=== PATIENT | female | born 1995 | race Caucasian/White ===

== ENCOUNTER 2016-09-15 19:34 | Inpatient (IN) | payer SELFPAY ==
--- NOTE | 2016-09-15 19:39 | EDPHY ---
H & P Time Seen by Provider: 09/15/16 19:35 HPI/ROS: CHIEF COMPLAINT: M1, HISTORY OF PRESENT ILLNESS: 21-year-old female, homeless, daily cigarette smoker, history of bipolar disorder noncompliant with medications, arrives via police on an M1 hold complaining of suicidal ideation with plan to run her camp stove in her tent and " of carbon monoxide poisoning". She denies attempt. Denies physical injury or pain. Denies hallucination. Has been off of bipolar medications for several months she recently moved to [place] from [place]. REVIEW OF SYSTEMS: A ten point review of systems was performed and is negative with the exception of the items mentioned in the HPI PAST MEDICAL & SURGICAL HISTORY: bipolar disorder SOCIAL HISTORY: daily smoker PHYSICAL EXAM (Prior to examination, patient consented to physical exam, hands were washed and my usual and customary physical exam procedures followed) 1) GENERAL: Well-developed, well-nourished, alert and oriented. Appears to be in no acute distress. 2) HEAD: Normocephalic, atraumatic 3) HEENT: Pupils equal, round, reactive to light bilaterally. Sclera anicteric. 4) NECK: Full range of motion, no meningeal signs. 5) LUNGS: Clear auscultation bilaterally, no wheezes, no rhonchi, no retractions. 6) HEART: Regular rate and rhythm, no murmur, no heave, no gallop. 7) ABDOMEN: No guarding, no rebound, no focal tenderness, 8) MUSCULOSKELETAL: Moving all extremities, no focal areas of tenderness, no obvious trauma. No peripheral edema or discoloration. 9) BACK: no obvious trauma, no visual or palpable abnormality. 10) SKIN: No rash, no petechiae. 11) Psychiatric: Patient is oriented X 3, there is no agitation. DIFFERENTIAL DIAGNOSIS: in no particular include but limited to depression, suicidal ideation, homicidal ideation (Kaycee,Lai Traci) Constitutional: Initial Vital Signs Temperature (C) 36.9 C 09/15/16 19:42 Heart Rate 114 H 09/15/16 19:42 Respiratory Rate 16 09/15/16 19:42 Blood Pressure 138/103 H 09/15/16 19:42 O2 Sat (%) 97 08/02/17 19:42 O2 Delivery Mode Room Air Allergies/Adverse Reactions: No Known Allergies Allergy (Unverified 09/15/16 19:41) Home Medications: Medication Instructions Recorded No Home Meds 09/15/16 Medical Decision Making ED Course/Re-evaluation: 7:53 p.m.: Patient complaining of suicidal ideation with plan to run her camp stove in her tent. She denies attempt. Will obtain a carboxyhemoglobin and other diagnostic studies. 8:15 p.m.: Patient is noted to have an elevated carboxyhemoglobin of 4.9 however she is a daily cigarette smoker. Will not initiate high-flow oxygen therapy at this point and she denies attempt at suicide. 10:59 p.m.: Patient admitted to Dr.Raybun Rory Andersen (Lai Benoit) Other Provider: The patient was evaluated and managed by the Physician Pole Framer/ Nurse Practitioner. I discussed the patient's presentation and course with the midlevel provider with them and agree with the evaluation. My co-signature indicates that I have reviewed this chart and I agree with the findings and plan of care as documented. I am the secondary supervising physician. (Nancy Brush) - Data Points Laboratory Results: Laboratory Results 09/15/16 19:49 09/15/16 19:49 09/15/16 09/15/16 09/15/16 19:53 19:49 19:49 WBC RBC Hgb Hct MCV MCH MCHC RDW Plt Count MPV Neut % (Auto) Lymph % (Auto) Bulloch % (Auto) Eos % (Auto) Baso % (Auto) Nucleat RBC Rel Count Absolute Neuts (auto) Absolute Lymphs (auto) Absolute Monos (auto) Absolute Eos (auto) Absolute Basos (auto) Absolute Nucleated RBC Immature Gran % Immature Gran # Carboxyhemoglobin 4.9 % H % (0-1.5) Sodium Potassium Chloride Carbon Dioxide Anion Gap BUN Creatinine Estimated GFR Glucose Calcium Beta HCG, Qual NEGATIVE Salicylates Urine Opiates Screen NEGATIVE (NEGATIVE) Acetaminophen Urine Barbiturates NEGATIVE (NEGATIVE) Ur Phencyclidine Scrn NEGATIVE (NEGATIVE) Ur Amphetamine Screen NEGATIVE (NEGATIVE) U Benzodiazepines Scrn NEGATIVE (NEGATIVE) Urine Cocaine Screen NEGATIVE (NEGATIVE) U Marijuana (THC) Screen NON-NEGATIVE H (NEGATIVE) Ethyl Alcohol 09/15/16 09/15/16 19:49 19:49 WBC 12.85 10^3/uL H 10^3/uL (3.80-9.50) RBC 4.77 10^6/uL 10^6/uL (4.18-5.33) Hgb 13.7 g/dL g/dL (12.6-16.3) Hct 41.0 % % (38.0-47.0) MCV 86.0 fL fL (81.5-99.8) MCH 28.7 pg pg (27.9-34.1) MCHC 33.4 g/dL g/dL (32.4-36.7) RDW 14.0 % % (11.5-15.2) Plt Count 347 10^3/uL 10^3/uL (150-400) MPV 10.7 fL fL (8.7-11.7) Neut % (Auto) 76.1 % H % (39.3-74.2) Lymph % (Auto) 16.5 % % (15.0-45.0) Bulloch % (Auto) 5.6 % % (4.5-13.0) Eos % (Auto) 0.9 % % (0.6-7.6) Baso % (Auto) 0.5 % % (0.3-1.7) Nucleat RBC Rel Count 0.0 % % (0.0-0.2) Absolute Neuts (auto) 9.77 10^3/uL H 10^3/uL (1.70-6.50) Absolute Lymphs (auto) 2.12 10^3/uL 10^3/uL (1.00-3.00) Absolute Monos (auto) 0.72 10^3/uL 10^3/uL (0.30-0.80) Absolute Eos (auto) 0.12 10^3/uL 10^3/uL (0.03-0.40) Absolute Basos (auto) 0.07 10^3/uL 10^3/uL (0.02-0.10) Absolute Nucleated RBC 0.00 10^3/uL 10^3/uL (0-0.01) Immature Gran % 0.4 % % (0.0-1.1) Immature Gran # 0.05 10^3/uL 10^3/uL (0.00-0.10) Carboxyhemoglobin Sodium 141 mEq/L mEq/L (134-144) Potassium 4.0 mEq/L mEq/L (3.5-5.2) Chloride 113 mEq/L H mEq/L (97-110) Carbon Dioxide 15 mEq/l L mEq/l (22-31) Anion Gap 13 mEq/L mEq/L (8-16) BUN 10 mg/dL mg/dL (7-23) Creatinine 0.9 mg/dL mg/dL (0.6-1.0) Estimated GFR > 60 Glucose 110 mg/dL H mg/dL (70-100) Calcium 9.7 mg/dL mg/dL (8.5-10.4) Beta HCG, Qual Salicylates < 1.0 mg/dL L mg/dL (2.0-20.0) Urine Opiates Screen Acetaminophen < 10 mcg/mL L mcg/mL (10.0-30.0) Urine Barbiturates Ur Phencyclidine Scrn Ur Amphetamine Screen U Benzodiazepines Scrn Urine Cocaine Screen U Marijuana (THC) Screen Ethyl Alcohol < 10 mg/dL mg/dL (0-10) Departure - Departure Disposition: [facility] IP Clinical Impression: Suicidal ideation Bipolar disorder Qualifiers: Active/Remission status: currently active Current bipolar episode type: depressed Current episode severity: severe Psychotic features: without psychotic features Qualified Code(s): F31.4 - Bipolar disorder, current episode depressed, severe, without psychotic features Condition: Fair Referrals: NONE *PRIMARY CARE P,. [Primary Care Provider] - As per Instructions
[2016-09-15 19:57] LABS: % IMMATURE GRANULYOCYTES 0.4 % (0.0-1.1); ABSOLUTE IMMATURE GRANULOCYTES 0.05 10^3/uL (0.00-0.10); ADD DIFF? NO; ADD MORPH? NO; ADD SCAN? NO; ATYPICAL LYMPHOCYTE FLAG 0 (0-99); FRAGMENT RBC FLAG 0 (0-99); HEMOGLOBIN 13.7 g/dL (12.6-16.3); LEFT SHIFT FLG 0 (0-99); LIPEMIA HEMOLYSIS FLAG 80 (0-99); MEAN CELL HEMOGLOBIN 28.7 pg (27.9-34.1); MEAN CELL HEMOGLOBIN CONCENTR. 33.4 g/dL (32.4-36.7); MEAN PLATELET VOLUME 10.7 fL (8.7-11.7); PLATELET CLUMPS FLAG 0 (0-99); PLATELET COUNT 347 10^3/uL (150-400); RED BLOOD CELL COUNT 4.77 10^6/uL (4.18-5.33)
[2016-09-15 20:09] LABS: ANION GAP 13 mEq/L (8-16); CALCIUM 9.7 mg/dL (8.5-10.4); CARBON DIOXIDE 15 mEq/l (22-31); CHLORIDE 113 mEq/L (97-110); CREATININE 0.9 mg/dL (0.6-1.0); ETHANOL SERUM < 10 mg/dL (0-10); GLOMERULAR FILTRATION RATE > 60; GLUCOSE 110 mg/dL (70-100); SALICYLATE < 1.0 mg/dL (2.0-20.0); SODIUM 141 mEq/L (134-144)
[2016-09-16] MEDS ORDERED: MAGNESIUM HYDROXIDE 30 ML UDCUP PO PRN (00:50)
[2016-09-16] MEDS ORDERED: MAG HYDROX/AL HYDROX/SIMETH 30 ML UDCUP PO PRN (00:50)
[2016-09-16] MEDS ORDERED: ACETAMINOPHEN 325 MG TAB PO PRN (00:50)
[2016-09-16] MEDS: LORazepam 0.5 MG TAB PO PRN ×3 (01:09→20:14)
[2016-09-16 01:25] VITALS: RESP 16
[2016-09-16] MEDS ORDERED: PNEUMOCOCCAL 0.5ML VACCINE VIAL IM ONE (11:55)
--- NOTE | 2016-09-16 13:53 | SOAPPROG ---
SOAP Progress Note Assessment/Plan: Assessment:Patient with schizophrenia with continued delusion she is ; even though, her test is negative. She wants multiple medications for her alleged of two weeks including Folate and a vitamin. She also wants some maternity clothing. She was willing to take Seroquel this Am, and she reports she will take 400 MG this evening. She is asking for Melatonin for her anxiety because it allegedly helped her get off of Adderall, Trileptal, Seroquel, and Paxil. Plan: Will encourage her to take her medicaiton as prescribed. She did agree to take a dose of the Seroquel. She was given a one time dose of 25 MG, which she tolerated. 09/16/16 13:42 09/16/16 13:53 Subjective: She wants pants thst fit and tennis shoes. She wants to work out, but she finds the exercise bike is to high even with the seat adjusted. She is excited about leaving to be close to her daughter Caitlyn. She reports her only fear is Adalberto because she is a God fearing woman. "Don't you fear God?" When asked why this was important, she replied, "Because you're e my sister in [place], I need you to stand tall next to me." She acknowledges increased energy and racing thoughts. She reports good bowel movements, but she reports her stomach hurts. Objective: Vital Signs Temp Pulse Resp BP Pulse Ox 36.6 C 88 16 119/79 96 09/16/16 01:24 09/16/16 01:24 09/16/16 01:24 09/16/16 01:24 09/16/16 01:24 female dressed in a soiled hoodie jacket and with a cap cover her head that has bald patches where she has pulled out her hair. Relaxed sitting in a hair. Good eye contact. Speech- Hyperverbal. Mood- "I'm excited about leaving and getting close to my target." Thought Process- Tangential, flight of ideas. Thought Content - No SI/HI. +Delusional. Insight - Poor. Judgment- Fair, but it is improving. - Time Spent With Patient Time Spent With Patient: 30 min - Pending Discharge Pending Discharge Within 24 Hours: No Pending Discharge Within 48 Hours: No ICD10 Worksheet Patient Problems: Problems Problem Status Onset Bipolar disorder Acute Suicidal ideation Acute
[2016-09-16] MEDS: NICOTINE POLACRILEX 2 MG GUM B PRN (15:26)
--- NOTE | 2016-09-16 18:45 | BCON ---
[f rep st] BEHAVIORAL HEALTH CONSULTATION INTERNAL MEDICINE CONSULTATION DATE OF CONSULTATION: 09/16/2016 REFERRING PHYSICIAN: Steven Christian MD REASON FOR REFERRAL: Medical clearance for inpatient behavioral health stay. HISTORY OF PRESENT ILLNESS: This patient was brought to the [facility] Emergency Department on an M1 hold by police. She had recently broken up with her boyfriend with whom she had been living in a tent in the [facility], having come to [place] approximately 2-1/2 months earlier. She had texted her mother with suicidal ideation. Mother called police for welfare check. She was evaluated by the mental health team and admitted for further psychiatric care. In the emergency department, labs revealed a carbon monoxide level of 4.9 , which was attributed to her being a heavy smoker. She denied an attempt to suicide, but rather ideation, and her plan was to run her camp stove in her tent to asphyxiate by carbon monoxide poisoning. She is currently without any acute complaints. PAST MEDICAL HISTORY: Bipolar disorder and anxiety. She denies any medical illnesses or surgeries. MEDICATIONS: She has not been on psychiatric medications for several months. She was previously on lorazepam and other medications that she did not specify. SOCIAL HISTORY: She is a heavy tobacco smoker and a regular marijuana user. She is not employed, and she was living in a tent in the [facility] with her boyfriend. FAMILY HISTORY: Noncontributory. REVIEW OF SYSTEMS: She denies recent weight change. She reports that she did not gain weight previously on psychiatric medications. She denies snoring. She denies fevers, chills, cough, dyspnea, nausea, vomiting, constipation, or diarrhea. She is not in pain. She denies dysuria, joint pain, joint swelling, skin rash, or skin breakdown; otherwise, a 10-point review of systems was negative. PHYSICAL EXAMINATION: VITAL SIGNS: Blood pressure at 1:24 this morning was 119 /79, heart rate was 88, respiratory rate was 16, oxygen saturation was 96% on room air, temperature was 36.6 degrees centigrade. Her weight is 113.4 kg for a body mass index of 42. GENERAL: This is an obese woman who appears her chronologic age. Cooperative and in no acute distress. HEENT: Extraocular movements are intact. Pupils are equal, round, and reactive to light. Mucous membranes are moist. Airway is crowded, Mallampati class IV. NECK: Supple. HEART: Regular rate and rhythm with no murmurs, rubs, or gallops. LUNGS: Clear to auscultation bilaterally. ABDOMEN: Soft, nontender, nondistended with normoactive bowel sounds. EXTREMITIES. No cyanosis, clubbing, or edema. NEUROLOGIC: Alert and oriented x3, no focal weakness, sensation intact to light touch, and gait is within normal limits. LABORATORY STUDIES: Drawn in the emergency department: CBC revealed an elevated white count of 12.85 with no left shift; it was predominantly neutrophils at 76.1%. Carboxyhemoglobin was 4.9. Serum chemistry revealed an elevated chloride at 113, and a low carbon dioxide at 15. Glucose was mildly elevated at 110 but this was likely not fasting. Otherwise, renal function and electrolytes were within normal limits. Beta hCG was negative for . Toxicology screen in the serum was negative for salicylates, acetaminophen, and ethyl alcohol. Toxicology screen in the urine was non-negative for marijuana and was otherwise negative for substances of abuse. ASSESSMENT/RECOMMENDATIONS: 1. Mental health issues, pending further evaluation and management per Psychiatry and the mental health team. 2. Obesity. Consider avoiding medications which could worsen weight gain, though she reports that she did not gain weight previously while being treated with psychiatric medications. 3. Tobacco dependence syndrome. Encouraged smoking cessation. She has never attempted to quit. I see no medical contraindications to this patient's continued stay on the inpatient behavioral health unit or to any psychiatric medications or procedures. Thank you very much for including me in the care of this patient and please do not hesitate to contact me or the hospitalists service should there be need for further medical evaluation. /[id number]/MODL MTDD
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
[2016-09-16] MEDS: LITHIUM CARBONATE 300 MG CAP PO SCH (20:14)
[2016-09-17 06:05] VITALS: BP 106/57; PULSE 85; TEMP 98.2; O2SAT 95
[2016-09-17] MEDS: LITHIUM CARBONATE 300 MG CAP PO SCH (09:19)
[2016-09-17] MEDS: NICOTINE POLACRILEX 2 MG GUM B PRN (09:19)
[2016-09-17] MEDS: LORazepam 0.5 MG TAB PO PRN (09:51)
--- NOTE | 2016-09-17 18:35 | BDS ---
[f rep st] BEHAVIORAL HEALTH DISCHARGE SUMMARY ADMISSION DIAGNOSES: [place] I: Bipolar disorder, type 1, most recent episode depressed with anxiety. [place] II: Unspecified cannabis disorder. [place] III: Obesity. MEDICAL DIAGNOSIS: As mentioned earlier is obesity. PHYSICAL EXAMINATION: VITAL SIGNS: The patient's admission vital signs were blood pressure 119/79, heart rate was 88, respirations were 16. She was saturating at 96% on room air. Her temperature was 36.6 degrees centigrade. Her weight was 113.4 kg for a body mass index of 42. Outside of her obesity, the patient had nothing of note on physical examination. LABORATORY VALUES: The patient in the emergency department was noted to have a CBC that was elevated with an elevated white blood count of 12.85 with no left shift. It was predominantly neutrophils at 76.1%. Her carboxyhemoglobin was 4.9 , the patient is a smoker. Her serum chemistry revealed an elevated chloride at 113 and a low carbon dioxide at 15. Her glucose was mildly elevated at 110 but it was not a fasting glucose. Her toxicology screen was positive for marijuana., Otherwise, her labs were within normal value. HOSPITAL COURSE: The patient was initially admitted to the hospital secondary to suicidal ideation. She had phoned her mother or another family member and reported that she was going to kill herself after her boyfriend left. She reportedly had a plan to do it via carbon monoxide in her tent. By the time the patient arrived at the hospital, she reported she was no longer feeling suicidal. Her only desire was to go back to [place] with her parents. The patient did endorse symptoms that were suggestive of a bipolar 1 disorder. The patient had a history of medication noncompliance. It appears that the only real medication she was interested in taking was Ativan. She did finally agree to a trial of lithium, which she received 2 doses of prior to her discharge from the hospital. The patient did not report any problems from the medication; although, she was not endorsing any benefits from the medication either. It does not appear that the patient participated in groups during her stay. Her major focus was on the arrival of her parents and being able to return to [place]. The patient did not have any behavioral problems on the unit. There was no self-harming behaviors nor aggression towards others. The patient did not present as agitated. FAMILY INVOLVEMENT: The patient's parents did provide information to the evaluators in the emergency room in regard to the patient's past history including her past psychiatric history. The parents did keep in contact with the reservoir caretaker and did fly into [place] to vegetable picker the patient to drive back to [place] with the patient in her car. The patient will be staying with her mother. MENTAL STATUS EXAMINATION: At the time of discharge from the hospital, the patient was reporting her mood as fine. Her affect was restricted, calm. Her speech was conversational. Her thought process was linear and goal directed. Thought content- she denied any thoughts of hurting herself or others. There was no evidence of psychosis. The patient's insight was fair, as was her judgment. The patient's prognosis is fair. She does have a history of medication and treatment noncompliance. She also has a history of self treating with drugs including marijuana; although, again, she does state that she is willing to follow up with outpatient mental health treatment and continue her medications at this time. DISCHARGE DIAGNOSES: [place] I: Bipolar disorder, type 1, most recent episode depressed with anxiety. Unspecified cannabis use disorder. Tobacco use disorder, moderate in forced remission in a controlled environment. [place] II: Deferred. [place] III: Obesity. [place] IV: Relationship difficulties, unemployed. [place] V: Global Assessment of Functioning is equal to 60. DISCHARGE PLAN: The patient will follow up with her outpatient mental health treatment providers (psychiatrist and therapist) through [facility]. She has a therapist there and now has appointments for a psychiatrist. DISCHARGE MEDICATIONS: The patient was discharged on lithium 300 mg p.o. b.i.d. She was given a prescription for 30 days worth of medications.She was informed that she will need to follow-up with her PCP or psychiatrist to have her lithium level, TSH, and creatinine checked in five days. /[id number]/MODL MTDD
== END 2016-09-17 11:51 | disposition home or self-care (01) | DRG 885 ==
LOC: BBEH 09-16 00:35
PROVIDERS: ADMIT Psychiatry & Neurology Psychiatry; ATTEND Psychiatry & Neurology Psychiatry
DX: F31.30 Bipolar disorder, current episode depressed, mild or moderate severity, unspecified (principal); F17.200 Nicotine dependence, unspecified, uncomplicated; F12.90 Cannabis use, unspecified, uncomplicated; E66.9 Obesity, unspecified; T43.506A Underdosing of unspecified antipsychotics and neuroleptics, initial encounter; Z59.0 Homelessness; Z23 Encounter for immunization
CPT/HCPCS: 80305; G0009; G0480